=== PATIENT | male | born 1945 | race Caucasian/White ===

== ENCOUNTER 2023-02-03 12:57 | Inpatient (IN) | payer MEDICARE, OTHER ==
[~2023-02-03] VITALS: Ht 188 cm; Wt 55.3 kg
[2023-02-03] MEDS ORDERED: AMLO-212 PO (13:29)
[2023-02-03] MEDS ORDERED: DICY10SO PO (13:29)
[2023-02-03] MEDS ORDERED: LINA290C PO (13:29)
[2023-02-03] MEDS ORDERED: PLEC3TAB2 PO (13:29)
[2023-02-03] MEDS ORDERED: ESCI-9 PO (13:29)
[2023-02-03] MEDS ORDERED: CLON-418 PO (13:29)
[2023-02-03] MEDS ORDERED: MORP30TA59 PO (13:29)
[2023-02-03] MEDS ORDERED: ALPR0.5T PO (13:29)
[2023-02-03 13:31] LABS: BASOPHILS % (AUTO) 0.7 % (0.0-2.0); EOSINOPHILS % (AUTO) 0.2 % (0.0-7.0); HEMATOCRIT 35.7 % (36.7-47.1); HEMOGLOBIN 12.2 g/dL (12.5-16.3); LYMPHOCYTES # (AUTO) 1.3 K/uL (0.8-4.8); LYMPHOCYTES % (AUTO) 18.1 % (20.5-51.5); MEAN CORPUSCULAR HEMOGLOBIN 33.1 uug (23.8-33.4); MEAN CORPUSCULAR HGB CONC 34 g/dL (32.5-36.3); MEAN CORPUSCULAR VOLUME 97.1 fL (73.0-96.2); MONOCYTES # (AUTO) 0.5 K/uL (0.1-1.30); MONOCYTES % (AUTO) 7.5 % (0.0-11.0); NEUTROPHILS # (AUTO) 5.1 K/uL (1.8-8.9); NEUTROPHILS % (AUTO) 73.5 % (38.5-71.5); PLATELET COUNT (AUTO) 159 K/uL (152-348); RED BLOOD CELL COUNT(AUTO) 3.67 MIL/uL (4.06-5.63); RED CELL DISTRIBUTION WIDTH 13.3 % (12.1-16.2); WHITE BLOOD COUNT (AUTO) 6.9 K/uL (3.6-10.2)
[2023-02-03 13:37] LABS: DIFFERENTIAL COMMENT 1
[2023-02-03 13:46] LABS: ETHANOL < 3 MG/DL (0-10)
[2023-02-03 14:00] LABS: THYROID STIMULATING HORMONE 0.565 mIU/mL (0.358-3.740)
[2023-02-03 14:08] LABS: *BILIRUBIN,URIN NEGATIVE (NEGATIVE); *CLARITY,URINE CLEAR (CLEAR); *COLOR,URINE YELLOW (YELLOW); *KETONES,URINE NEGATIVE (NEGATIVE); *PROTEIN,URINE 2+ (NEGATIVE); LEUKOCYTE ESTERASE ,URINE NEGATIVE (NEGATIVE); NITRITE, URINE NEGATIVE (NEGATIVE); UGLUCOSE NEGATIVE (NEGATIVE)
[2023-02-03 14:09] LABS: CALCIUM 8.7 mg/dL (8.5-10.1); CARBON DIOXIDE 27 mmol/L (21-32); CHLORIDE 103 mmol/L (98-107); CREATININE 1.7 mg/dL (0.6-1.3); GLUCOSE 114 mg/dL (74-106); POTASSIUM 3.7 mmol/L (3.5-5.1); SODIUM SERUM 141 mmol/L (136-145); UREA NITROGEN, BLOOD 24 mg/dL (7-18)
[2023-02-03 14:11] LABS: *BLOOD, URINE TRACE (NEGATIVE)
[2023-02-03 14:15] LABS: ALANINE AMINOTRANSFERASE 19 U/L (16-63); ALKALINE PHOSPHATASE 60 U/L (50-136); ASPARTATE AMINOTRANSFERASE 8 U/L (15-37); BILIRUBIN,DIRECT 0.2 mg/dL (0.0-0.2); BILIRUBIN,TOTAL 0.8 mg/dL (0.2-1.0); TOTAL PROTEIN, SERUM 6.9 g/dL (6.4-8.2)
[2023-02-03 14:28] LABS: *AMPHETAMINE, URINE NEGATIVE (NEGATIVE); *BARBITURATE, URINE NEGATIVE (NEGATIVE); *BENZODIAZEPINE, URINE POSITIVE (NEGATIVE); *CANNABINOID, URINE NEGATIVE (NEGATIVE); *COCCAINE, URINE NEGATIVE (NEGATIVE); *OPIATE, URINE POSITIVE (NEGATIVE); *PHENCYCLIDINE SCREEN,URINE NEGATIVE (NEGATIVE); FENTANYL, URINE NEGATIVE (NEGATIVE)
[2023-02-03 14:47] LABS: RBC,URINE 0-3 /HPF (0-3); WBC,URINE NONE SEEN /HPF (0-3)
[2023-02-03] MEDS ORDERED: ZOLPIDEM 5 MG TABLET PO PRN (20:30)
[2023-02-03] MEDS ORDERED: LORAZEPAM 1 MG TABLET PO PRN (20:30)
[2023-02-03] MEDS ORDERED: MAGNESIUM HYDROXIDE 30 ML LIQUID UDC PO PRN (20:30)
[2023-02-03] MEDS ORDERED: ACETAMINOPHEN 650 MG SUPP.RECT RC PRN (20:30)
[2023-02-03] MEDS ORDERED: MAG HYDROX/AL HYDROX/SIMETH 30 ML LIQUID UDC PO PRN (20:30)
[2023-02-03 21:25] VITALS: BP 128/68; TEMP 98.2; O2SAT 98
[2023-02-04] MEDS: HYDROCODONE/APAP 10-325 MG TABLET PO PRN ×2 (05:36→16:35)
[2023-02-04 07:58] VITALS: BP 149/66; TEMP 98.3; O2SAT 98
[2023-02-04] MEDS: NICOTINE 21 MG/24HR PATCH TD SCH (08:38)
[2023-02-04] MEDS: ENSURE ENLIVE (VAN) 240 ML LIQUID PO SCH ×3 (08:48→17:07)
[2023-02-04] MEDS ORDERED: PLECANATIDE PO SCH (09:00)
[2023-02-04] MEDS ORDERED: CLONIDINE HCL 0.1 MG TABLET PO SCH (09:00)
[2023-02-04] MEDS ORDERED: AMLODIPINE 5 MG TABLET PO SCH (09:00)
[2023-02-04] MEDS ORDERED: CLONIDINE HCL PO SCH (09:00)
[2023-02-04] MEDS ORDERED: Linaclotide (Linzess) 290 MCG) PO SCH (09:00)
[2023-02-04] MEDS ORDERED: DICYCLOMINE HCL 20 MG TABLET PO SCH ×2 (09:00)
[2023-02-04] MEDS: QUETIAPINE FUMARATE 25 MG TABLET PO SCH ×2 (09:40→20:27)
[2023-02-04] MEDS: MAGNESIUM HYDROXIDE 30 ML LIQUID UDC PO PRN (14:39)
[2023-02-04] MEDS ORDERED: CLONIDINE HCL 0.1 MG TABLET PO PRN (14:47)
[2023-02-04] MEDS: AMLODIPINE 5 MG TABLET PO SCH (15:53)
[2023-02-04 16:36] VITALS: BP 121/61; TEMP 98; O2SAT 99
[2023-02-04] MEDS: METOPROLOL SUCCINATE XL 25 MG TAB.SR.24H PO SCH (18:00)
[2023-02-04 20:00] VITALS: BP 138/69; TEMP 97.4; O2SAT 98
[2023-02-04] MEDS: HYDROXYZINE PAMOATE 25 MG CAPSULE PO PRN (20:26)
[2023-02-04] MEDS: TAMSULOSIN HCL 0.4 MG CAP.SR.24H PO SCH (20:26)
[2023-02-04] MEDS: MIRTAZAPINE 15 MG TABLET PO SCH (20:27)
[2023-02-05] MEDS: HYDROCODONE/APAP 10-325 MG TABLET PO PRN ×2 (01:04→08:08)
[2023-02-05] MEDS: MAGNESIUM HYDROXIDE 30 ML LIQUID UDC PO PRN (01:05)
[2023-02-05] MEDS: HYDROXYZINE PAMOATE 25 MG CAPSULE PO PRN ×3 (07:09→23:37)
[2023-02-05] MEDS: ACETAMINOPHEN 325 MG TABLET PO PRN (07:09)
[2023-02-05 08:03] VITALS: BP 154/74; TEMP 98.3; O2SAT 99
[2023-02-05] MEDS: METOPROLOL SUCCINATE XL 25 MG TAB.SR.24H PO SCH (08:07)
[2023-02-05] MEDS: AMLODIPINE 5 MG TABLET PO SCH (08:07)
[2023-02-05] MEDS: QUETIAPINE FUMARATE 25 MG TABLET PO SCH ×3 (08:10→20:30)
[2023-02-05] MEDS: NICOTINE 21 MG/24HR PATCH TD SCH (08:10)
[2023-02-05] MEDS: ENSURE ENLIVE (VAN) 240 ML LIQUID PO SCH ×3 (08:12→16:29)
[2023-02-05 16:13] VITALS: BP 143/76; TEMP 98.1; O2SAT 99
[2023-02-05 19:48] VITALS: BP 176/84; TEMP 98; O2SAT 99
[2023-02-05] MEDS: MIRTAZAPINE 15 MG TABLET PO SCH (20:30)
[2023-02-05] MEDS: TAMSULOSIN HCL 0.4 MG CAP.SR.24H PO SCH (20:30)
[2023-02-05] MEDS: CLONIDINE HCL 0.1 MG TABLET PO PRN (20:32)
[2023-02-06] MEDS: HYDROCODONE/APAP 10-325 MG TABLET PO PRN ×2 (04:21→21:01)
[2023-02-06] MEDS: MAGNESIUM HYDROXIDE 30 ML LIQUID UDC PO PRN (04:21)
[2023-02-06] MEDS: CLONIDINE HCL 0.1 MG TABLET PO PRN ×3 (05:58→19:58)
[2023-02-06 07:44] VITALS: BP 150/70; TEMP 98.3; O2SAT 97
[2023-02-06] MEDS: METOPROLOL SUCCINATE XL 25 MG TAB.SR.24H PO SCH (08:51)
[2023-02-06] MEDS: QUETIAPINE FUMARATE 25 MG TABLET PO SCH ×2 (08:51→20:03)
[2023-02-06] MEDS: AMLODIPINE 5 MG TABLET PO SCH ×2 (08:52→20:36)
[2023-02-06] MEDS: ENSURE ENLIVE (VAN) 240 ML LIQUID PO SCH ×3 (08:52→16:31)
[2023-02-06] MEDS: NICOTINE 21 MG/24HR PATCH TD SCH (08:52)
[2023-02-06 10:53] VITALS: BP 143/76
[2023-02-06 15:02] VITALS: BP 148/64; TEMP 98.5; O2SAT 96
[2023-02-06] MEDS: TAMSULOSIN HCL 0.4 MG CAP.SR.24H PO SCH (20:02)
[2023-02-06] MEDS: MIRTAZAPINE 15 MG TABLET PO SCH (20:03)
[2023-02-06 20:19] VITALS: BP 174/81; TEMP 97.8; O2SAT 99
[2023-02-06 22:05] VITALS: BP 138/67
[2023-02-07] MEDS: AMLODIPINE 5 MG TABLET PO SCH ×4 (07:57→20:42)
[2023-02-07] MEDS: NICOTINE 21 MG/24HR PATCH TD SCH (08:55)
[2023-02-07] MEDS: DULOXETINE 30 MG CAPSULE.DR PO SCH (08:55)
[2023-02-07] MEDS: QUETIAPINE FUMARATE 25 MG TABLET PO SCH ×3 (08:55→20:50)
[2023-02-07] MEDS: METOPROLOL SUCCINATE XL 25 MG TAB.SR.24H PO SCH (08:55)
[2023-02-07] MEDS: ENSURE ENLIVE (VAN) 240 ML LIQUID PO SCH ×3 (08:57→16:43)
[2023-02-07 09:01] VITALS: BP 162/77; TEMP 98.2; O2SAT 96
[2023-02-07] MEDS: MAGNESIUM HYDROXIDE 30 ML LIQUID UDC PO PRN (11:03)
[2023-02-07] MEDS: HYDROXYZINE PAMOATE 25 MG CAPSULE PO PRN (11:38)
[2023-02-07 13:52] VITALS: BP 140/73; O2SAT 97
[2023-02-07] MEDS: HYDROCODONE/APAP 10-325 MG TABLET PO PRN (14:39)
[2023-02-07 15:52] VITALS: BP 136/68; O2SAT 98
[2023-02-07] MEDS: SIMETHICONE 80 MG TAB.CHEW PO SCH ×2 (16:42→20:42)
[2023-02-07 20:02] VITALS: BP 139/68; TEMP 98.2; O2SAT 99
[2023-02-07] MEDS: TAMSULOSIN HCL 0.4 MG CAP.SR.24H PO SCH (20:41)
[2023-02-07] MEDS: ACETAMINOPHEN 325 MG TABLET PO PRN (22:43)
[2023-02-08] MEDS: SIMETHICONE 80 MG TAB.CHEW PO SCH ×4 (07:29→20:42)
[2023-02-08] MEDS: AMLODIPINE 5 MG TABLET PO SCH ×4 (07:29→20:41)
[2023-02-08 07:30] VITALS: BP 168/78; TEMP 98.6; O2SAT 98
[2023-02-08 08:14] LABS: BASOPHILS % (AUTO) 0.3 % (0.0-2.0); EOSINOPHILS # (AUTO) 0.1 K/uL (0.0-0.7); EOSINOPHILS % (AUTO) 1.8 % (0.0-7.0); HEMATOCRIT 34.9 % (36.7-47.1); HEMOGLOBIN 11.8 g/dL (12.5-16.3); LYMPHOCYTES # (AUTO) 1.5 K/uL (0.8-4.8); LYMPHOCYTES % (AUTO) 26.3 % (20.5-51.5); MEAN CORPUSCULAR HEMOGLOBIN 32.6 uug (23.8-33.4); MEAN CORPUSCULAR HGB CONC 34 g/dL (32.5-36.3); MEAN CORPUSCULAR VOLUME 96.6 fL (73.0-96.2); MONOCYTES # (AUTO) 0.4 K/uL (0.1-1.30); MONOCYTES % (AUTO) 6.8 % (0.0-11.0); NEUTROPHILS # (AUTO) 3.8 K/uL (1.8-8.9); NEUTROPHILS % (AUTO) 64.8 % (38.5-71.5); PLATELET COUNT (AUTO) 146 K/uL (152-348); RED BLOOD CELL COUNT(AUTO) 3.61 MIL/uL (4.06-5.63); RED CELL DISTRIBUTION WIDTH 12.8 % (12.1-16.2); WHITE BLOOD COUNT (AUTO) 5.9 K/uL (3.6-10.2)
[2023-02-08 08:22] LABS: DIFFERENTIAL COMMENT 1
[2023-02-08 08:33] LABS: IRON, SERUM 56 ug/dL (50-175)
[2023-02-08] MEDS: DULOXETINE 30 MG CAPSULE.DR PO SCH (08:54)
[2023-02-08] MEDS: CLONIDINE HCL 0.1 MG TABLET PO PRN (08:54)
[2023-02-08] MEDS: METOPROLOL SUCCINATE XL 25 MG TAB.SR.24H PO SCH (08:54)
[2023-02-08] MEDS: QUETIAPINE FUMARATE 25 MG TABLET PO SCH ×3 (08:55→20:40)
[2023-02-08] MEDS: ENSURE ENLIVE (VAN) 240 ML LIQUID PO SCH ×3 (08:55→16:39)
[2023-02-08 09:01] LABS: CALCIUM 8.9 mg/dL (8.5-10.1); CARBON DIOXIDE 28 mmol/L (21-32); CHLORIDE 108 mmol/L (98-107); CREATININE 1.5 mg/dL (0.6-1.3); FERRITIN 167 ng/mL (26-388); GLUCOSE 109 mg/dL (74-106); POTASSIUM 3.3 mmol/L (3.5-5.1); SODIUM SERUM 142 mmol/L (136-145); UREA NITROGEN, BLOOD 32 mg/dL (7-18)
[2023-02-08] MEDS: NICOTINE 21 MG/24HR PATCH TD SCH (09:26)
[2023-02-08] MEDS: GABAPENTIN 100 MG CAPSULE PO SCH ×3 (09:27→16:39)
[2023-02-08] MEDS: ACETAMINOPHEN 325 MG TABLET PO PRN (15:36)
[2023-02-08] MEDS: MAGNESIUM HYDROXIDE 30 ML LIQUID UDC PO PRN (15:49)
[2023-02-08 16:00] VITALS: BP 110/64; TEMP 97; O2SAT 100
[2023-02-08] MEDS: HYDROXYZINE PAMOATE 25 MG CAPSULE PO PRN (20:40)
[2023-02-08] MEDS: TAMSULOSIN HCL 0.4 MG CAP.SR.24H PO SCH (20:40)
[2023-02-08 20:44] VITALS: BP 156/89; TEMP 98.2; O2SAT 98
[2023-02-09 07:37] VITALS: BP 150/62; TEMP 97.4; O2SAT 99
[2023-02-09] MEDS: NICOTINE 21 MG/24HR PATCH TD SCH (08:22)
[2023-02-09] MEDS: QUETIAPINE FUMARATE 25 MG TABLET PO SCH ×3 (08:23→21:06)
[2023-02-09] MEDS: DULOXETINE 30 MG CAPSULE.DR PO SCH (08:24)
[2023-02-09] MEDS: GABAPENTIN 100 MG CAPSULE PO SCH ×3 (08:24→16:40)
[2023-02-09] MEDS: SIMETHICONE 80 MG TAB.CHEW PO SCH ×4 (08:25→21:05)
[2023-02-09] MEDS: AMLODIPINE 5 MG TABLET PO SCH ×4 (08:25→21:05)
[2023-02-09] MEDS: METOPROLOL SUCCINATE XL 25 MG TAB.SR.24H PO SCH (08:25)
[2023-02-09] MEDS: ENSURE ENLIVE (VAN) 240 ML LIQUID PO SCH ×3 (08:26→16:41)
[2023-02-09] MEDS: ACETAMINOPHEN 325 MG TABLET PO PRN ×3 (08:48→21:20)
[2023-02-09 15:01] VITALS: BP 122/69; TEMP 98.2; O2SAT 100
[2023-02-09] MEDS: HYDROXYZINE PAMOATE 25 MG CAPSULE PO PRN (15:19)
[2023-02-09] MEDS: MAGNESIUM HYDROXIDE 30 ML LIQUID UDC PO PRN (18:50)
[2023-02-09 20:03] VITALS: BP 132/64; TEMP 98.2; O2SAT 96
[2023-02-09] MEDS: TAMSULOSIN HCL 0.4 MG CAP.SR.24H PO SCH (21:06)
[2023-02-10] MEDS: HYDROXYZINE PAMOATE 25 MG CAPSULE PO PRN (00:25)
[2023-02-10 07:55] VITALS: BP 155/71; TEMP 98.5; O2SAT 97
[2023-02-10] MEDS: DULOXETINE 30 MG CAPSULE.DR PO SCH (08:30)
[2023-02-10] MEDS: METOPROLOL SUCCINATE XL 25 MG TAB.SR.24H PO SCH (08:30)
[2023-02-10] MEDS: QUETIAPINE FUMARATE 25 MG TABLET PO SCH ×3 (08:31→20:21)
[2023-02-10] MEDS: NICOTINE 21 MG/24HR PATCH TD SCH (08:31)
[2023-02-10] MEDS: GABAPENTIN 100 MG CAPSULE PO SCH ×3 (08:33→16:20)
[2023-02-10] MEDS: AMLODIPINE 5 MG TABLET PO SCH ×4 (08:33→20:21)
[2023-02-10] MEDS: SIMETHICONE 80 MG TAB.CHEW PO SCH ×4 (08:33→20:21)
[2023-02-10] MEDS: ENSURE ENLIVE (VAN) 240 ML LIQUID PO SCH ×3 (08:34→16:20)
[2023-02-10 15:29] VITALS: BP 140/74; TEMP 98; O2SAT 99
[2023-02-10 19:52] VITALS: BP 146/71; TEMP 98.2; O2SAT 100
[2023-02-10] MEDS: TAMSULOSIN HCL 0.4 MG CAP.SR.24H PO SCH (20:21)
[2023-02-10] MEDS: ACETAMINOPHEN 325 MG TABLET PO PRN (20:22)
[2023-02-11] MEDS: SIMETHICONE 80 MG TAB.CHEW PO SCH ×4 (06:16→21:12)
[2023-02-11] MEDS: AMLODIPINE 5 MG TABLET PO SCH ×4 (06:16→21:05)
[2023-02-11 07:25] LABS: BASOPHILS % (AUTO) 0.6 % (0.0-2.0); EOSINOPHILS # (AUTO) 0.2 K/uL (0.0-0.7); EOSINOPHILS % (AUTO) 2.3 % (0.0-7.0); HEMATOCRIT 37.7 % (36.7-47.1); HEMOGLOBIN 12.7 g/dL (12.5-16.3); LYMPHOCYTES # (AUTO) 2.3 K/uL (0.8-4.8); LYMPHOCYTES % (AUTO) 32.6 % (20.5-51.5); MEAN CORPUSCULAR HEMOGLOBIN 32.7 uug (23.8-33.4); MEAN CORPUSCULAR HGB CONC 34 g/dL (32.5-36.3); MEAN CORPUSCULAR VOLUME 97.1 fL (73.0-96.2); MONOCYTES # (AUTO) 0.5 K/uL (0.1-1.30); MONOCYTES % (AUTO) 7.3 % (0.0-11.0); NEUTROPHILS # (AUTO) 4.1 K/uL (1.8-8.9); NEUTROPHILS % (AUTO) 57.2 % (38.5-71.5); PLATELET COUNT (AUTO) 203 K/uL (152-348); RED BLOOD CELL COUNT(AUTO) 3.88 MIL/uL (4.06-5.63); RED CELL DISTRIBUTION WIDTH 12.9 % (12.1-16.2); WHITE BLOOD COUNT (AUTO) 7.2 K/uL (3.6-10.2)
[2023-02-11 07:29] LABS: DIFFERENTIAL COMMENT 1
[2023-02-11 07:40] LABS: ALANINE AMINOTRANSFERASE 44 U/L (16-63); ALBUMIN 3.8 g/dL (3.4-5.0); ALKALINE PHOSPHATASE 104 U/L (50-136); ASPARTATE AMINOTRANSFERASE 12 U/L (15-37); BILIRUBIN,TOTAL 0.5 mg/dL (0.2-1.0); CARBON DIOXIDE 30 mmol/L (21-32); CHLORIDE 108 mmol/L (98-107); CREATININE 1.7 mg/dL (0.6-1.3); GLUCOSE 113 mg/dL (74-106); MAGNESIUM 2.4 mg/dL (1.8-2.4); PHOSPHOROUS 3.1 mg/dL (2.5-4.9); POTASSIUM 4.1 mmol/L (3.5-5.1); SODIUM SERUM 144 mmol/L (136-145); TOTAL PROTEIN, SERUM 6.9 g/dL (6.4-8.2); UREA NITROGEN, BLOOD 45 mg/dL (7-18)
[2023-02-11 07:44] VITALS: BP 143/79; TEMP 97.8; O2SAT 100
[2023-02-11] MEDS: NICOTINE 21 MG/24HR PATCH TD SCH (08:51)
[2023-02-11] MEDS: GABAPENTIN 100 MG CAPSULE PO SCH ×3 (08:51→17:08)
[2023-02-11] MEDS: DULOXETINE 30 MG CAPSULE.DR PO SCH (08:51)
[2023-02-11] MEDS: QUETIAPINE FUMARATE 25 MG TABLET PO SCH ×3 (08:52→21:14)
[2023-02-11] MEDS: METOPROLOL SUCCINATE XL 25 MG TAB.SR.24H PO SCH (08:53)
[2023-02-11] MEDS: ENSURE ENLIVE (VAN) 240 ML LIQUID PO SCH ×3 (10:00→17:08)
[2023-02-11 15:17] VITALS: BP 132/66; TEMP 98.4; O2SAT 98
[2023-02-11] MEDS: MAGNESIUM HYDROXIDE 30 ML LIQUID UDC PO PRN (18:30)
[2023-02-11 20:00] VITALS: BP 140/77; TEMP 99.1; O2SAT 98
[2023-02-11] MEDS: TAMSULOSIN HCL 0.4 MG CAP.SR.24H PO SCH (21:05)
[2023-02-11] MEDS: HYDROCODONE/APAP 5-325MG TABLET PO PRN (21:13)
[2023-02-12] MEDS: SIMETHICONE 80 MG TAB.CHEW PO SCH ×4 (06:42→20:23)
[2023-02-12] MEDS: AMLODIPINE 5 MG TABLET PO SCH ×4 (07:17→20:24)
[2023-02-12] MEDS: HYDROCODONE/APAP 5-325MG TABLET PO PRN ×2 (07:17→20:20)
[2023-02-12] MEDS: QUETIAPINE FUMARATE 25 MG TABLET PO SCH ×3 (08:34→20:23)
[2023-02-12] MEDS: GABAPENTIN 100 MG CAPSULE PO SCH ×3 (08:35→17:21)
[2023-02-12 08:36] VITALS: BP 136/66; TEMP 98.1; O2SAT 98
[2023-02-12] MEDS: ENSURE ENLIVE (VAN) 240 ML LIQUID PO SCH ×3 (08:37→17:21)
[2023-02-12] MEDS: DULOXETINE 30 MG CAPSULE.DR PO SCH (08:37)
[2023-02-12] MEDS: METOPROLOL SUCCINATE XL 25 MG TAB.SR.24H PO SCH (09:07)
[2023-02-12] MEDS: NICOTINE 21 MG/24HR PATCH TD SCH (09:07)
[2023-02-12 16:18] VITALS: BP 121/68; TEMP 98; O2SAT 99
[2023-02-12 19:46] VITALS: BP 124/63; TEMP 98.1; O2SAT 98
[2023-02-12] MEDS: TAMSULOSIN HCL 0.4 MG CAP.SR.24H PO SCH (20:19)
[2023-02-13] MEDS: AMLODIPINE 5 MG TABLET PO SCH ×4 (06:32→20:21)
[2023-02-13] MEDS: SIMETHICONE 80 MG TAB.CHEW PO SCH ×4 (06:32→20:22)
[2023-02-13 07:48] VITALS: BP 134/74; TEMP 98.3; O2SAT 99
[2023-02-13 08:32] LABS: BASOPHILS % (AUTO) 0.5 % (0.0-2.0); EOSINOPHILS # (AUTO) 0.1 K/uL (0.0-0.7); EOSINOPHILS % (AUTO) 1.5 % (0.0-7.0); HEMATOCRIT 36.6 % (36.7-47.1); HEMOGLOBIN 12.2 g/dL (12.5-16.3); LYMPHOCYTES # (AUTO) 1.4 K/uL (0.8-4.8); LYMPHOCYTES % (AUTO) 15.9 % (20.5-51.5); MEAN CORPUSCULAR HEMOGLOBIN 32.2 uug (23.8-33.4); MEAN CORPUSCULAR HGB CONC 33 g/dL (32.5-36.3); MONOCYTES # (AUTO) 0.6 K/uL (0.1-1.30); MONOCYTES % (AUTO) 7.1 % (0.0-11.0); NEUTROPHILS # (AUTO) 6.5 K/uL (1.8-8.9); PLATELET COUNT (AUTO) 173 K/uL (152-348); RED BLOOD CELL COUNT(AUTO) 3.78 MIL/uL (4.06-5.63); RED CELL DISTRIBUTION WIDTH 13.2 % (12.1-16.2); WHITE BLOOD COUNT (AUTO) 8.7 K/uL (3.6-10.2)
[2023-02-13 08:55] LABS: ALANINE AMINOTRANSFERASE 40 U/L (16-63); ALBUMIN 3.6 g/dL (3.4-5.0); ALKALINE PHOSPHATASE 106 U/L (50-136); ASPARTATE AMINOTRANSFERASE 7 U/L (15-37); BILIRUBIN,TOTAL 0.4 mg/dL (0.2-1.0); CALCIUM 8.8 mg/dL (8.5-10.1); CARBON DIOXIDE 30 mmol/L (21-32); CHLORIDE 107 mmol/L (98-107); CREATINE KINASE, TOTAL 19 U/L (39-308); CREATININE 1.7 mg/dL (0.6-1.3); GLUCOSE 116 mg/dL (74-106); MAGNESIUM 2.3 mg/dL (1.8-2.4); PHOSPHOROUS 3.6 mg/dL (2.5-4.9); POTASSIUM 4.3 mmol/L (3.5-5.1); SODIUM SERUM 144 mmol/L (136-145); TOTAL PROTEIN, SERUM 6.5 g/dL (6.4-8.2); UREA NITROGEN, BLOOD 47 mg/dL (7-18)
[2023-02-13] MEDS: GABAPENTIN 100 MG CAPSULE PO SCH ×3 (09:06→16:05)
[2023-02-13] MEDS: NICOTINE 21 MG/24HR PATCH TD SCH (09:06)
[2023-02-13] MEDS: QUETIAPINE FUMARATE 25 MG TABLET PO SCH ×3 (09:06→20:22)
[2023-02-13] MEDS: DULOXETINE 30 MG CAPSULE.DR PO SCH (09:06)
[2023-02-13] MEDS: ENSURE ENLIVE (VAN) 240 ML LIQUID PO SCH ×2 (09:07→12:20)
[2023-02-13] MEDS: METOPROLOL SUCCINATE XL 25 MG TAB.SR.24H PO SCH (09:08)
[2023-02-13 16:14] VITALS: BP 139/75; TEMP 98.1; O2SAT 99
[2023-02-13] MEDS: MAGNESIUM HYDROXIDE 30 ML LIQUID UDC PO PRN (16:33)
[2023-02-13 19:35] VITALS: BP 136/72; TEMP 98.1; O2SAT 98
[2023-02-13] MEDS: TAMSULOSIN HCL 0.4 MG CAP.SR.24H PO SCH (20:23)
[2023-02-14] MEDS: SIMETHICONE 80 MG TAB.CHEW PO SCH ×2 (06:26→11:47)
[2023-02-14] MEDS: AMLODIPINE 5 MG TABLET PO SCH ×2 (06:26→11:47)
[2023-02-14 07:48] VITALS: BP 122/53; TEMP 98.2; O2SAT 99
[2023-02-14] MEDS: DULOXETINE 30 MG CAPSULE.DR PO SCH (08:29)
[2023-02-14] MEDS: QUETIAPINE FUMARATE 25 MG TABLET PO SCH (08:29)
[2023-02-14] MEDS: GABAPENTIN 100 MG CAPSULE PO SCH ×2 (08:30→12:24)
[2023-02-14] MEDS: NICOTINE 21 MG/24HR PATCH TD SCH (08:30)
[2023-02-14] MEDS: METOPROLOL SUCCINATE XL 25 MG TAB.SR.24H PO SCH (08:31)
[2023-02-14] MEDS ORDERED: ENSURE ENLIVE (VAN) 240 ML LIQUID PO SCH (09:00)
[2023-02-14 11:47] VITALS: BP 114/69
== END 2023-02-14 13:00 | disposition home or self-care (01) | DRG 885 ==
LOC: ER 12:57 → GPS 18:47
PROVIDERS: ADMIT Psychiatry & Neurology Psychiatry; ATTEND Nurse Practitioner Acute Care
DX: F33.3 Major depressive disorder, recurrent, severe with psychotic symptoms (principal); E43 Unspecified severe protein-calorie malnutrition; N17.0 Acute kidney failure with tubular necrosis; N18.4 Chronic kidney disease, stage 4 (severe); Z68.1 Body mass index [BMI] 19.9 or less, adult; F03.94 Unspecified dementia, unspecified severity, with anxiety; F03.92 Unspecified dementia, unspecified severity, with psychotic disturbance; F41.1 Generalized anxiety disorder; D64.9 Anemia, unspecified; E87.6 Hypokalemia; F29 Unspecified psychosis not due to a substance or known physiological condition; G89.4 Chronic pain syndrome; I12.9 Hypertensive chronic kidney disease with stage 1 through stage 4 chronic kidney disease, or unspecified chronic kidney disease; N28.1 Cyst of kidney, acquired; N40.0 Benign prostatic hyperplasia without lower urinary tract symptoms; Z79.891 Long term (current) use of opiate analgesic; Z79.899 Other long term (current) drug therapy; K59.00 Constipation, unspecified; F17.210 Nicotine dependence, cigarettes, uncomplicated; Z73.6 Limitation of activities due to disability
CPT/HCPCS: 36415; 71045; 74018; 76770; 83550; 83735; 84100; 84443; 85025; 93005; A4663; A9150; G0480